=== PATIENT | female | born 1975 | race Two or more races ===

== ENCOUNTER 2019-06-20 01:20 | Emergency (ER) | payer MEDICAID ==
[~2019-06-20] VITALS: Ht 157.5 cm; Wt 107.5 kg
[2019-06-20] MEDS ORDERED: EPINEPHrine HCL 1 MG/10 ML SYRG IV ONE (01:21)
[2019-06-20] MEDS ORDERED: SODIUM BICARBONATE 8.4% INJ 50ML SYRINGE IV ONE (01:21)
[2019-06-20] MEDS ORDERED: SODIUM CHLORIDE 0.9% 1,000 ML IV ONE (02:15)
[2019-06-20 02:26] LABS: Basophils # (auto) 0 uL; Basophils % (auto) 0.2 % (0.0-2.0); Eosinophils # (auto) 0 uL; Eosinophils % (auto) 0.1 % (0.0-7.0); Hematocrit 43.1 % (36.0-46.0); Hemoglobin 13.5 g/dL (12.2-16.2); Lymphocytes % (auto) 15.7 % (10.0-50.0); Mean Corpuscular Hemoglobin 21.7 pg (28.0-32.0); Mean Corpuscular Hgb Conc. 31.4 g/dL (32.0-36.0); Mean Corpuscular Volume 69.2 fL (80.0-100.0); Monocytes # (auto) 0.5 uL; Monocytes % (auto) 7.3 % (0.0-12.0); Neutrophils % (auto) 76.7 % (37.0-80.0); Nucleated Red Blood Cells % 0.7 %; Platelet Count (auto) 463 10^3/uL (140-450); Red Blood Cells 6.24 10^6/uL (4.0-5.20); White Blood Cell 6.5 10^3/uL (4.4-10.8)
[2019-06-20 02:27] LABS: Red Cell Distribution Width 22.3 % (11.8-14.3)
[2019-06-20 02:43] LABS: Amylase 213 U/L (25-115); Lipase 169 U/L (73-393)
[2019-06-20 02:44] LABS: Albumin 2.7 g/dL (3.4-5.0); Calcium 8.8 mg/dL (8.5-10.1)
[2019-06-20] MEDS ORDERED: MORPHINE SULFATE 4 MG/ML SYR/VIAL IV ONE ×2 (02:45→05:00)
[2019-06-20] MEDS ORDERED: ONDANSETRON HCL 4 MG/2 ML VIAL IV ONE ×2 (02:45→05:00)
[2019-06-20 02:46] LABS: BUN/Creatinine Ratio 8.2
[2019-06-20 02:49] LABS: Bilirubin, Total 0.7 mg/dL (0.2-1.0)
[2019-06-20 02:50] LABS: Lactic Acid w/Reflex 12.5 mmol/L (0.4-2.0); Potassium 2.9 mmol/L (3.5-5.1)
[2019-06-20] MEDS ORDERED: POTASSIUM CHL 20MEQ/100ML 100 ML IV ONE (03:00)
[2019-06-20] MEDS ORDERED: HYDROmorphone HCL 2 MG/ML VL IV ONE (03:15)
[2019-06-20] MEDS ORDERED: MORPHINE SULF INJ 2 MG/ML SYRINGE 1ML IV PRN (03:45)
[2019-06-20] MEDS ORDERED: VANCOMYCIN PER PHARMACY 1,000 MG IV SCH (03:45)
[2019-06-20] MEDS ORDERED: SODIUM CHLORIDE 0.9% 3,250 ML IV ONE (03:45)
[2019-06-20] MEDS ORDERED: NITROGLYCERIN 0.4 MG SL TAB SL PRN (03:45)
[2019-06-20] MEDS ORDERED: VANCOMYCIN 1GM/250ML 250 ML IV SCH (04:30)
[2019-06-20] MEDS ORDERED: NOREPINEPHRINE 8 MG/250ML KIT 250 ML IV SCH (04:42)
[2019-06-20] MEDS ORDERED: PROMETHAZINE HCL 25 MG/ML 1ML IV ONE (05:30)
[2019-06-20] MEDS ORDERED: PIPERACILLIN-TAZOB 3.375GM 100 ML IV SCH (06:00)
[2019-06-20 06:10] LABS: INR 1.36 (0.9-1.15); Partial Thromboplastin Time 36.6 sec (23.64-32.05)
[2019-06-20] MEDS ORDERED: VANCOMYCIN 500 MG in D5W 5% 100 ML IV SCH (06:30)
[2019-06-20] MEDS ORDERED: MIDAZOLAM DRIP 50 mg/50mL 50 ML IV ONE (06:43)
[2019-06-20] MEDS ORDERED: SUCCINYLCHOLINE CHLORIDE 20 MG/ML 10ML VIAL IV ONE ×2 (06:43→06:45)
[2019-06-20] MEDS ORDERED: ETOMIDATE (2MG/ML) 20ML VIAL IV ONE ×2 (06:43→06:45)
[2019-06-20] MEDS ORDERED: SODIUM BICARBONATE 8.4% INJ 50ML SYRINGE ONE ×2 (06:49→06:50)
[2019-06-20] MEDS ORDERED: PROPOFOL 100 ML IV SCH (07:19)
[2019-06-20] MEDS ORDERED: MIDAZOLAM DRIP 50 mg/50mL 50 ML IV SCH (07:43)
[2019-06-20] MEDS ORDERED: SODIUM BICARBONATE IV ONE (07:45)
[2019-06-20] MEDS ORDERED: SODIUM CHL IV ONE (07:45)
[2019-06-20] MEDS ORDERED: fentaNYL Drip 2500mCg/250mlNS 250 ML IV ONE (09:04)
[2019-06-20] MEDS ORDERED: fentaNYL Drip 2500mCg/250mlNS 250 ML IV SCH (09:38)
[2019-06-20] MEDS ORDERED: PHENYLEPHRINE INJ 20 MG in D5W 5% 248 ML IV ONE (09:45)
[2019-06-20] MEDS ORDERED: HETASTARCH 500 ML IV ONE (10:45)
[2019-06-20] MEDS ORDERED: VASOPRESSIN 50 UNITS in D5W 5% 247.5 ML IV ONE (10:45)
[2019-06-20 10:55] LABS: Basophils # (auto) 0 uL; Basophils % (auto) 0.3 % (0.0-2.0); Eosinophils # (auto) 0 uL; Eosinophils % (auto) 0.6 % (0.0-7.0); Hematocrit 38.8 % (36.0-46.0); Hemoglobin 11.7 g/dL (12.2-16.2); Lymphocytes # (auto) 0.7 uL; Lymphocytes % (auto) 43.6 % (10.0-50.0); Mean Corpuscular Hemoglobin 21.2 pg (28.0-32.0); Mean Corpuscular Hgb Conc. 30.2 g/dL (32.0-36.0); Mean Corpuscular Volume 70.4 fL (80.0-100.0); Monocytes # (auto) 0.1 uL; Monocytes % (auto) 3.8 % (0.0-12.0); Neutrophils # (auto) 0.9 uL; Neutrophils % (auto) 51.7 % (37.0-80.0); Platelet Count (auto) 265 10^3/uL (140-450); Red Blood Cells 5.51 10^6/uL (4.0-5.20)
[2019-06-20 10:56] LABS: Nucleated Red Blood Cells % 3.6 %; Red Cell Distribution Width 23.8 % (11.8-14.3)
[2019-06-20 10:59] LABS: White Blood Cell 1.7 10^3/uL (4.4-10.8)
[2019-06-20 11:27] VITALS: BP 87/19
[2019-06-20 11:35] VITALS: BP 77/38
[2019-06-20 12:15] VITALS: BP 126/71
== END 2019-06-20 13:40 | disposition short-term general hospital (02) ==
LOC: ER 01:20
DX: A41.9 Sepsis, unspecified organism (principal); K85.90 Acute pancreatitis without necrosis or infection, unspecified; E87.6 Hypokalemia; N28.9 Disorder of kidney and ureter, unspecified
CPT/HCPCS: 31500; 36415; 36600; 71045; 74176; 80053; 82150; 82550; 82805; 83605; 83690; 84484; 85025; 85379; 85384; 85610; 85730; 86850; 86900; 86901; 86920; 87040; 87070; 87077; 87186; 87205; 92950; 93005; 94002; 96361; 96365; 96367; 96368; 96375; 96376; 99285; J0171; J1170; J2250; J2270; J2370; J2405; J2543; J2550; J3370; J3480; J7030; J7060; P9016; J0330